=== PATIENT | female | born 1975 | race Two or more races ===

== ENCOUNTER 2022-04-19 12:09 | Emergency (ER) | payer OTHER ==
[~2022-04-19] VITALS: Ht 162.6 cm; Wt 104.8 kg
[2022-04-19] MEDS ORDERED: GLUMETZA1000 MG (12:49)
[2022-04-19] MEDS ORDERED: PEPCID AC20 MG (12:49)
[2022-04-19] MEDS ORDERED: PANTOPRAZOLE SO40 M1 IV (12:49)
[2022-04-19] MEDS ORDERED: CIPRO500 MG PO (17:24)
== END 2022-04-19 18:33 | disposition home or self-care (01) ==
LOC: ER 12:09
DX: R10.9 Unspecified abdominal pain (principal)